=== PATIENT | female | born 1975 | race Two or more races ===

== ENCOUNTER 2018-11-01 11:37 | Emergency (ER) | payer OTHER ==
[~2018-11-01] VITALS: Ht 160 cm; Wt 88.9 kg
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
[2018-11-01 11:45] VITALS: BP 134/76
--- NOTE | 2018-11-01 11:59 | NUR ---
ED Nurse Note: URINE SPECIMEN SENT.
[2018-11-01] MEDS ORDERED: Morphine Sulfate 2mg/ml Inj(IV/IM USE ONLY) IM ONE (12:45)
[2018-11-01] MEDS ORDERED: Ketorolac 60mg Inj IM ONE (12:45)
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
--- NOTE | 2018-11-01 13:45 | NUR ---
ED Nurse Note: PT SIGNED AMA FORM AND REFUSED XRAY. DR JESUS NOTIFIED.
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
--- NOTE | 2018-11-01 13:58 | Diagnostic Imaging Report ---
Indication: Reason For Exam: PAIN Technique: Spiral acquisitions obtained through the cervical spine. No IV contrast utilized. Multiplanar reconstructions were generated. Total dose length product 1851.86 mGycm. CTDIvol(s) 70.38,18.35 mGy. Dose reduction achieved using automated exposure control. Comparison: none Findings: Bony alignment is normal. Vertebral body heights are preserved. No acute fractures. No dislocations. No prevertebral soft tissue swelling. There is minimal degenerative disc narrowing at C3-5-6. No significant disc bulge or protrusion, spinal stenosis, or neural foraminal stenosis. Included extra spinal soft tissues are unremarkable Impression: No acute bony trauma Minimal disc degeneration at C5-6. The CT scanner at [facility] is accredited by the [employer] and the scans are performed using protocols designed to limit radiation exposure to as low as reasonably achievable to attain images of sufficient resolution adequate for diagnostic evaluation.
[2018-11-01 14:02] VITALS: BP 138/79
--- NOTE | 2018-11-01 14:02 | NUR ---
ER DISCHARGE NOTE: PT SIGNED AMA AND UNDERSTOOD TEACHINGS OF ERMD. DR JESUS INSTRUCTED PT/FAMILY MEMBER TO FF UP WITH PRIMARY DOCTOR AND SEE A SPECIALIST. PT IS AAO X4, AMBULATED OUT WITH WHEELCHAIR ASSIST. NO IV ACCESS.
== END 2018-11-01 14:02 | disposition left against medical advice (07) ==
LOC: EDBD 11:37 → EMR 12:05
DX: M79.622 Pain in left upper arm (principal); S10.93XA Contusion of unspecified part of neck, initial encounter; V43.52XA Car driver injured in collision with other type car in traffic accident, initial encounter; Y92.410 Unspecified street and highway as the place of occurrence of the external cause
CPT/HCPCS: 70450; 72125; 81025; 96372; 99284; J2270